=== PATIENT | female | born 1985 | race Caucasian/White ===

== ENCOUNTER 2018-04-08 18:07 | Emergency (ER) | payer OTHER, SELFPAY | END 2018-04-08 18:41 | disposition left against medical advice (07) | LOC: M ED 18:07 | DX: Z53.21 Procedure and treatment not carried out due to patient leaving prior to being seen by health care provider (principal) ==

== ENCOUNTER → 2020-09-15 | Outpatient (CLI) | payer OTHER ==
[~2020-09-15] MED LIST: ATOR1TAB21; CELE20TA PO; COLA100C5 PO; COMBAER6 INH; FERR325T3 PO; FIORCAP3 PO; HEAL1TAB6 PO; IBUP600T42 PO; IBUP80TA PO; LOVE1INJ2 SC; NICO21DI3 TD; PARO20TA3; PAXI20TA3 PO; PERCOCET PO; PROZ40CA PO; SETL1TAB; VITMTA PO
== END ==
LOC: M LABSMTC 13:34
PROVIDERS: ATTEND Anesthesiology
DX: Z01.812 Encounter for preprocedural laboratory examination (principal); Z20.822 Contact with and (suspected) exposure to COVID-19

== ENCOUNTER 2020-09-20 06:54 | Day surgery (SDC) | payer OTHER ==
[~2020-09-20] VITALS: Ht 154.9 cm; Wt 61.3 kg
[~2020-09-20 06:54] MED LIST changes: +LIDOCAINE 1% MDV 20ML VIAL SQ PRN
--- OUTSIDE RECORDS SUMMARY | 2020-09-20 06:57 | CCD | Continuity of Care Document ---
Author Author Cheryl LAW [place] Organization Unknown Address [address] [place] [address] [place] [address] Phone [phone] Care Team Providers Care Transplant Worker Name Role Phone [facility] AUTM [phone] [facility] AUTM [phone] Problems Description No Information Available Social History Type Date Description Comments Sex Unknown ETOH Use Denies alcohol use Tobacco Use Start: Unknown Patient is a current smoker, smo kes every day 1/2 ppd Smoking Status Reviewed: 08/08/20 Patient is a current smoker, smokes every day 1/2 ppd Allergies, Adverse Reactions, Alerts Active Allergies Reaction Severity Comments Date Penicillin V Swelling 08/08/2020 Medications Active Medications SIG Qnty Indications Ordering Provide r Date Cefdinir 300mg Capsules 1 by mouth twice a day x 10 days 20caps Jeremy Ansari JR., M.D. 12/2020 Albuterol Sulfate HFA 108(90Base) mcg/Act Aerosol 1-2 puff inhaled 3-4 x per day for sob/wheezing 8.500gm Jeremy Ansari JR., M.D. 08/08/2020 Paroxetine HCL 20mg Tablets q d Unknown Atorvastatin Calcium 10mg Tablets qd Unknown Immunizations Description No Information Available Vital Signs Date Vital Result Comment 08/08/2020 5:35pm BP Systolic 126 mmHg BP Diastolic 85 mmHg Heart Rate 97 /min Respiratory Rate 16 /min O2 % BldC Oximetry 98 % Body Temperature 98.2 F Weight 135.00 lb Pain Level 8 Results Description No Information Available Procedures Description No Information Available Medical Devices Description No Information Available Encounters Type Date Location Provider Dx Diagnosis Office Visit 08/08/2020 5:45p Main Office YG Castro J0 6.9 Acute upper respiratory infection, unspecified Z20.828 Contact w and exposure to ot h viral communicable diseases Assessments Date Code Description Provider 08/08/2020 J06.9 Acute upper respiratory infectio n, unspecified YG Castro 08/08/2020 Z20.828 Contact with and (mariee spected) exposure to other viral communicable diseases YG Castro Plan of Treatment No Information Available Functional Status Description No Information Available Mental Status Description No Information Available Referrals Description No Information Available
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
--- OUTSIDE RECORDS SUMMARY | 2020-09-20 06:57 | CCD ---
Author Author [facility] Organization [facility] Address Unknown Phone Unavailable Care Team Providers Care Leak Inspector Name Role Phone Brayden Askew Unavailable PROBLEMS Type Condition ICD9-CM Code [id number] Code Onset Dates Condition S tatus SNOMED Code Notes Problem Menorrhagia with irregular cycle N92.1 Active 343684981 Problem Dysmenorrhea N94.6 Active 767776312 Problem Depression, unspecified depression type F32.9 Active 06080799 Problem Smoking F17.200 Active 21999882 Problem Menorrhagia with regular cycle N92.0 Active 3 56321767 Problem Hyperlipidemia, unspecified hyperlipidemia type E7 8.5 Active 37498454 ALLERGIES Allergen (clinical drug ingredient) Drug/Non Drug Allergy do cumented on EMR Reaction Allergy Type Onset Date Status Penicillin Anaphylaxis-Neomycin Non Drug Allergy Active ENCOUNTERS from 1983 to 2020-08-18 Encounter Location Date Provider Diagnosis [facility] [address] [place] [address] 15 Ja n2020 Brayden Askew IMMUNIZATIONS No Information SOCIAL HISTORY [...] Information RESULTS No Results REASON FOR VISIT Work note MEDICAL (GENERAL) HISTORY Type Description Date Medical [...] Insured Coverage Start Date Coverage End Date [facility] [address] [facility] [address] Cheryl Beavers self
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
--- OUTSIDE RECORDS SUMMARY | 2020-09-20 06:57 | CCD | Continuity of Care Document ---
Author Author [facility]eryl [facility] [place] Organization Unknown Address [address] [place] [address] [place] [address] Phone [phone] Care Team Providers Care Head Tennis Professional Name Role Phone [facility] AUTM [phone] [facility] AUTM [phone] Problems Description No Information Available Social History [...]
--- OUTSIDE RECORDS SUMMARY | 2020-09-20 06:57 | CCD ---
Author Author [facility] Organization [facility] Address Unknown Phone Unavailable Care Team Providers Care Installation Supervisor Name Role Phone Alan Leroy Unavailable PROBLEMS Type Condition ICD9-CM Code [id number] Code Onset Dates Condition S tatus SNOMED Code Notes Problem Menorrhagia with irregular cycle N92.1 Active 405767410 Problem Dysmenorrhea N94.6 Active 525299933 Problem Depression, unspecified depression type F32.9 Active 41852608 Problem Smoking F17.200 Active 38432452 Problem Menorrhagia with regular cycle N92.0 Active 3 41216433 Problem Hyperlipidemia, unspecified hyperlipidemia type E7 8.5 Active 58757916 ALLERGIES Allergen (clinical drug ingredient) Drug/Non Drug Allergy do cumented on EMR Reaction Allergy Type Onset Date Status Penicillin Anaphylaxis-Neomycin Non Drug Allergy Active ENCOUNTERS from 1983 to 2020-08-28 Encounter Location Date Provider Diagnosis [address] [address] Aug, Alan Leroy IMMUNIZATIONS No Information SOCIAL HISTORY [...] Ora lly Three times a day Active Paroxetine HCl 20 MG 1 tablet in the morning Orally Once a day for 30 Active Lipitor 20 MG 1 tablet Orally [...] Medication Name Sig Start Date Stop Date Paroxetine HCl 20 MG 1 tablet in the morning Orally Once a day f or 30 Lipitor 20 MG 1 tablet Orally Once a day for 30 Next Appt Details Provider Name:Enriqueta Metz, 2020-10-0 5 02:30:00 PM, [address] [place] [address], [phone], Insurance Providers Payer Name Payer Address Payer Phone Insured Name Patient Relati onship to Insured Coverage Start Date Coverage End Date [facility] [address] [facility] [phone] Cheryl Beavers self
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
--- OUTSIDE RECORDS SUMMARY | 2020-09-20 06:57 | CCD ---
Author Author [facility] Organization [facility] Address Unknown Phone Unavailable Care Team Providers Care Inflatable Buildings Laminator Name Role Phone Brayden Askew Unavailable PROBLEMS Type Condition ICD9-CM Code ALI24-AC Code Onset Dates Condition S tatus SNOMED Code Notes Problem Menorrhagia with irregular cycle N92.1 Active 533262910 Problem Dysmenorrhea N94.6 Active 189556082 Problem Depression, unspecified depression type F32.9 Active 10063096 Problem Smoking F17.200 Active 97388020 Problem Menorrhagia with regular cycle N92.0 Active 3 80040688 Problem Hyperlipidemia, unspecified hyperlipidemia type E7 8.5 Active 87953261 ALLERGIES Allergen (clinical drug ingredient) Drug/Non Drug Allergy do cumented on EMR Reaction Allergy Type Onset Date Status Penicillin Anaphylaxis-Neomycin Non Drug Allergy Active ENCOUNTERS from 1983 to 2020-08-30 Encounter Location Date Provider Diagnosis [address] [address] Aug, Brayden Askew IMMUNIZATIONS No Information SOCIAL [...] Information RESULTS No Results REASON FOR VISIT off work slip MEDICAL (GENERAL) HISTORY Type Description Date Medical [...] Provider Name:Enriqueta Metz, 2020-10-0 5 02:30:00 PM, [address] [place] [address], [phone], Insurance Providers Payer Name Payer Address Payer Phone Insured Name Patient Relati onship to Insured Coverage Start Date Coverage End Date [facility] [address] [facility] [phone] Cheryl Beavers self
--- OUTSIDE RECORDS SUMMARY | 2020-09-20 06:58 | CCD ---
Author Author [facility] Organization [facility] Address Unknown Phone Unavailable Care Team Providers Care Director Of Resource Development Name Role Phone KAPLAN SR, LUIS MIGUEL GUPTA MD Unavailable Unavailable KAPLAN SR, LUIS MIGUEL GUPTA MD Unavailable Unavailable KAPLAN SR, LUIS MIGUEL GUPTA MD Unavailable Unavailable KAPLAN SR, LUIS MIGUEL GUPTA MD Unavailable Unavailable KAPLAN SR, LUIS MIGUEL GUPTA MD Unavailable Unavailable KAPLAN SR, LUIS MIGUEL GUPTA MD Unavailable Unavailable KAPLAN SR, LUIS MIGUEL GUPTA MD Unavailable Unavailable KAPLAN SR, LUIS MIGUEL GUPTA MD Unavailable Unavailable KAPLAN SR, LUIS MIGUEL GUPTA MD Unavailable Unavailable KAPLAN SR, LUIS MIGUEL GUPTA MD Unavailable Unavailable KAPLAN SR, LUIS MIGUEL GUPTA MD Unavailable Unavailable KAPLAN SR, LUIS MIGUEL GUPTA MD Unavailable Unavailable KAPLAN SR, LUIS MIGUEL GUPTA MD Unavailable Unavailable KAPLAN SR, LUIS MIGUEL GUPTA MD Unavailable Unavailable KAPLAN SR, LUIS MIGUEL GUPTA MD Unavailable Unavailable KAPLAN SR, LUIS MIGUEL GUPTA MD Unavailable Unavailable KAPLAN SR, LUIS MIGUEL GUPTA MD Unavailable Unavailable KAPLAN SR, LUIS MIGUEL GUPTA MD Unavailable Unavailable KAPLAN SR, LUIS MIGUEL GUPTA MD Unavailable Unavailable KAPLAN SR, LUIS MIGUEL GUPTA MD Unavailable Unavailable KAPLAN SR, LUIS MIGUEL GUPTA MD Unavailable Unavailable KAPLAN SR, LUIS MIGUEL GUPTA MD Unavailable Unavailable KAPLAN SR, LUIS MIGUEL GUPTA MD Unavailable Unavailable KAPLAN SR, LUIS MIGUEL GUPTA MD Unavailable Unavailable KAPLAN SR, LUIS MIGUEL GUPTA MD Unavailable Unavailable KAPLAN SR, LUIS MIGUEL GUPTA MD Unavailable Unavailable KAPLAN SR, LUIS MIGUEL GUPTA MD Unavailable Unavailable KAPLAN SR, LUIS MIGUEL GUPTA MD Unavailable Unavailable KAPLAN SR, LUIS MIGUEL GUPTA MD Unavailable Unavailable KAPLAN SR, LUIS MIGUEL GUPTA MD Unavailable Unavailable KAPLAN SR, LUIS MIGUEL GUPTA MD Unavailable Unavailable KAPLAN SR, LUIS MIGUEL GUPTA MD Unavailable Unavailable KAPLAN SR, LUIS MIGUEL GUPTA MD Unavailable Unavailable KAPLAN SR, LUIS MIGUEL GUPTA MD Unavailable Unavailable KAPLAN SR, LUIS MIGUEL GUPTA MD Unavailable Unavailable KAPLAN SR, LUIS MIGUEL GUPTA MD Unavailable Unavailable KAPLAN SR, LUIS MIGUEL GUPTA MD Unavailable Unavailable KAPLAN SR, LUIS MIGUEL GUPTA MD Unavailable Unavailable KAPLAN SR, LUIS MIGUEL GUPTA MD Unavailable Unavailable KAPLAN SR, LUIS MIGUEL GUPTA MD Unavailable Unavailable KAPLAN SR, LUIS MIGUEL GUPTA MD Unavailable Unavailable KAPLAN SR, LUIS MIGUEL GUPTA MD Unavailable Unavailable KAPLAN SR, LUIS MIGUEL GUPTA MD Unavailable Unavailable KAPLAN SR, LUIS MIGUEL GUPTA MD Unavailable Unavailable KAPLAN SR, LUIS MIGUEL GUPTA MD Unavailable Unavailable KAPLAN SR, LUIS MIGUEL GUPTA MD Unavailable Unavailable KAPLAN SR, LUIS MIGUEL GUPTA MD Unavailable Unavailable KAPLAN SR, LUIS MIGUEL GUPTA MD Unavailable Unavailable KAPLAN SR, LUIS MIGUEL GUPTA MD Unavailable Unavailable KAPLAN SR, LUIS MIGUEL GUPTA MD Unavailable Unavailable KAPLAN SR, LUIS MIGUEL GUPTA MD Unavailable Unavailable KAPLAN SR, LUIS MIGUEL GUPTA MD Unavailable Unavailable KAPLAN SR, LUIS MIGUEL GUPTA MD Unavailable Unavailable KAPLAN SR, LUIS MIGUEL GUPTA MD Unavailable Unavailable MCELHERAN, LUIS MIGUEL PA Unavailable Unavailable MCELHERAN, LUIS MIGUEL PA Unavailable Unavailable MCELHERAN, LUIS MIGUEL PA Unavailable Unavailable MCELHERAN, LUIS MIGUEL PA Unavailable Unavailable MCELHERAN, LUIS MIGUEL PA Unavailable Unavailable MCELHERAN, LUIS MIGUEL PA Unavailable Unavailable MCELHERAN, LUIS MIGUEL PA Unavailable Unavailable MCELHERAN, LUIS MIGUEL PA Unavailable Unavailable MCELHERAN, LUIS MIGUEL PA Unavailable Unavailable MCELHERAN, LUIS MIGUEL PA Unavailable Unavailable MCELHERAN, LUIS MIGUEL PA Unavailable Unavailable MCELHERAN, LUIS MIGUEL PA Unavailable Unavailable MCELHERAN, LUIS MIGUEL PA Unavailable Unavailable MCELHERAN, LUIS MIGUEL PA Unavailable Unavailable MCELHERAN, LUIS MIGUEL PA Unavailable Unavailable MCELHERAN, LUIS MIGUEL PA Unavailable Unavailable MCELHERAN, LUIS MIGUEL PA Unavailable Unavailable MCELHERAN, LUIS MIGUEL PA Unavailable Unavailable MCELHERAN, LUIS MIGUEL PA Unavailable Unavailable MCELHERAN, LUIS MIGUEL PA Unavailable Unavailable MCELHERAN, LUIS MIGUEL PA Unavailable Unavailable MCELHERAN, LUIS MIGUEL PA Unavailable Unavailable MCELHERAN, LUIS MIGUEL PA Unavailable Unavailable MCELHERAN, LUIS MIGUEL PA Unavailable Unavailable MCELHERAN, LUIS MIGUEL PA Unavailable Unavailable MCELHERAN, LUIS MIGUEL PA Unavailable Unavailable MCELHERAN, LUIS MIGUEL PA Unavailable Unavailable MCELHERAN, LUIS MIGUEL PA Unavailable Unavailable Bolla S Reji MD Unavailable Unavailable Bolla S Reji MD Unavailable Unavailable Bolla S Reji MD Unavailable Unavailable Bolla S Reji MD Unavailable Unavailable Bolla, S Reji MD Unavailable Unavailable Bolla S Reji MD Unavailable Unavailable Bolla S Reji MD Unavailable Unavailable Bolla S Reji MD Unavailable Unavailable Bolla S Reji MD Unavailable Unavailable Bolla S Reji MD Unavailable Unavailable Bolla S Reji MD Unavailable Unavailable Bolla S Reji MD Unavailable Unavailable Bolla S Reji MD Unavailable Unavailable Bolingrid S Reji MD Unavailable Unavailable Bolla S Reji MD Unavailable Unavailable Bolingrid S Reji MD Unavailable Unavailable Bolingrid S Reji MD Unavailable Unavailable Bolingrid S Reji MD Unavailable Unavailable Bolla S Reji MD Unavailable Unavailable Bolla S Reji MD Unavailable Unavailable Bolingrid S Reji MD Unavailable Unavailable Bolingrid S Reji MD Unavailable Unavailable Bolingrid S Reji MD Unavailable Unavailable Bolla S Reji MD Unavailable Unavailable Bolingrid S Reji MD Unavailable Unavailable Bolla S Reji MD Unavailable Unavailable Bolingrid S Reji MD Unavailable Unavailable Bolingrid S Reji MD Unavailable Unavailable Bolingrid S Reji MD Unavailable Unavailable Bolla S Reji MD Unavailable Unavailable Bolla S Reji MD Unavailable Unavailable Bolla S Reji MD Unavailable Unavailable Bolla S Reji MD Unavailable Unavailable Bolla S Reji MD Unavailable Unavailable Bolla S Reji MD Unavailable Unavailable Bolla S Reji MD Unavailable Unavailable Bolla S Reji MD Unavailable Unavailable Bolla S Reji MD Unavailable Unavailable Bolla, S Reji MD Unavailable Unavailable Bolla S Reji MD Unavailable Unavailable Bolla S Reji MD Unavailable Unavailable Bolla S Reji MD Unavailable Unavailable Bolla, S Reji MD Unavailable Unavailable Bolla, S Reji MALONEY Unavailable Unavailable Bolla, S Reji MALONEY Unavailable Unavailable Bolla, S Reji MALONEY Unavailable Unavailable Bolla, S Reji MALONEY Unavailable Unavailable Bolla, S Reji MALONEY Unavailable Unavailable Campanaro, Mare Anai PA Unavailable Unavailable Campanaro, Mare Anai PA Unavailable Unavailable Campanaro, Mare Anai PA Unavailable Unavailable Campanaro, Mare Anai PA Unavailable Unavailable Campanaro, Mare Anai PA Unavailable Unavailable Campanaro, Mare Anai PA Unavailable Unavailable Campanaro, Mare Anai PA Unavailable Unavailable Campanaro, Mare Anai PA Unavailable Unavailable Campanaro, Mare Anai PA Unavailable Unavailable Campanaro, Mare Naai PA Unavailable Unavailable Campanaro, Mare Anai PA Unavailable Unavailable Campanaro, Mare Anai PA Unavailable Unavailable Campanaro, Mare Anai PA Unavailable Unavailable Campanaro, Mare Anai PA Unavailable Unavailable Campanaro, Mare Anai PA Unavailable Unavailable Campanaro, Mare Anai PA Unavailable Unavailable Campanaro, Mare Anai PA Unavailable Unavailable Campanaro, Mare Anai PA Unavailable Unavailable SHAHIDA, J ANTOINETTE DO Unavailable Unavailable SHAHIDA, J ANTOINETTE DO Unavailable Unavailable SHAHIDA, J ANTOINETTE DO Unavailable Unavailable SHAHIDA, J ANTOINETTE DO Unavailable Unavailable SHAHIDA, J ANTOINETTE DO Unavailable Unavailable SHAHIDA, J ANTOINETTE DO Unavailable Unavailable SHAHIDA, J ANTOINETTE DO Unavailable Unavailable SHAHIDA, J ANTOINETTE DO Unavailable Unavailable SHAHIDA, J ANTOINETTE DO Unavailable Unavailable SHAHIDA, J ANTOINETTE DO Unavailable Unavailable SHAHIDA, J ANTOINETTE DO Unavailable Unavailable SHAHIDA, J ANTOINETTE DO Unavailable Unavailable SHAHIDA, J ANTOINETTE DO Unavailable Unavailable SHAHIDA, J ANTOINETTE DO Unavailable Unavailable SHAHIDA, J ANTOINETTE DO Unavailable Unavailable SHAHIDA, J ANTOINETTE DO Unavailable Unavailable SHAHIDA, J ANTOINETTE DO Unavailable Unavailable SHAHIDA, J ANTOINETTE DO Unavailable Unavailable SHAHIDA, J ANTOINETTE DO Unavailable Unavailable SHAHIDA, J ANTOINETTE DO Unavailable Unavailable SHAHIDA, J ANTOINETTE DO Unavailable Unavailable SHAHIDA, J ANTOINETTE DO Unavailable Unavailable SHAHIDA, J ANTOINETTE DO Unavailable Unavailable Bolla, S Reji MALONEY Unavailable Unavailable Bolla, S Reji MALONEY Unavailable Unavailable Bolla, S Reji MALONEY Unavailable Unavailable Bolla, S Reji MALONEY Unavailable Unavailable Bolla, Chaim Mendoza MD Unavailable Unavailable Bolla, Chaim Mendoza MD Unavailable Unavailable Bolla, Chaim Mendoza MD Unavailable Unavailable Bolla, Chaim Mendoza MD Unavailable Unavailable Bolla, Chaim Mendoza MD Unavailable Unavailable Bolla, Chaim Mendoza MD Unavailable Unavailable Bolla, Chaim Mendoza MD Unavailable Unavailable Bolla, Chaim Mendoza MD Unavailable Unavailable Bolla, Chaim Mendoza MD Unavailable Unavailable Bolla, Chaim Mendoza MD Unavailable Unavailable Bolla, Chaim Mendoza MD Unavailable Unavailable Bolla, Chaim Mendoza MD Unavailable Unavailable Bolla, Chaim Mendoza MD Unavailable Unavailable Bolla, Chaim Mendoza MD Unavailable Unavailable Bolla, S Reji MALONEY Unavailable Unavailable Bolla, Chaim Mendoza MD Unavailable Unavailable Bolla, Chaim Mendoza MD Unavailable Unavailable Bolla, Chaim Mendoza MD Unavailable Unavailable Bolla, Chaim Mendoza MD Unavailable Unavailable Bolla, Chaim Mendoza MD Unavailable Unavailable Bolla, Chaim Mendoza MD Unavailable Unavailable Bolla, Chaim Mendoza MD Unavailable Unavailable Bolla, Chaim Mendoza MD Unavailable Unavailable Bolla, Chaim Mendoza MD Unavailable Unavailable Bolla, Chaim Mendoza MD Unavailable Unavailable Bolla, Chaim Mendoza MD Unavailable Unavailable Bolla, Chaim Mendoza MD Unavailable Unavailable Bolla, Chaim Mendoza MD Unavailable Unavailable Bolla, Chaim Mendoza MD Unavailable Unavailable Bolla, Chaim Mendoza MD Unavailable Unavailable Bolla, Chaim Mendoza MD Unavailable Unavailable Bolla, Chaim Mendoza MD Unavailable Unavailable Bolla, Chaim Mendoza MD Unavailable Unavailable Bolla, Chaim Mendoza MD Unavailable Unavailable Bolla, Chaim Mendoza MD Unavailable Unavailable Bolla, Chaim Mendoza MD Unavailable Unavailable Bolla, Chaim Mendoza MD Unavailable Unavailable Bolla, Chaim Mendoza MD Unavailable Unavailable Bolla, Chaim Mendoza MD Unavailable Unavailable Bolla, Chaim Mendoza MD Unavailable Unavailable Bolla, Chaim Mendoza MD Unavailable Unavailable Bolla, Chaim Mendoza MD Unavailable Unavailable Bolla, Chaim Mendoza MD Unavailable Unavailable Bolla, Chaim Mendoza MD Unavailable Unavailable Re-disclosure Warning The records that you are about to access may contain information from federally-assisted alcohol or drug abuse programs. If such information is present, then the following federally mandated warning applies: This information has been disclosed to you from records protected by federal confidentiality rules (42 CFR part 2). The federal rules prohibit you from making any further disclosure of this information unless further disclosure is expressly permitted by the written consent of the person to whom it pertains or as otherwise permitted by 42 CFR part 2. A general authorization for the release of medical or other information is NOT sufficient for this purpose. The Federal rules restrict any use of the information to criminally investigate or prosecute any alcohol or drug abuse patient.The records that you are about to access may contain highly sensitive health information, the redisclosure of which is protected by Article 27-F of the [facility] Public Health law. If you continue you may have access to information: Regarding HIV / AIDS; Provided by facilities licensed or operated by the [facility] Office of Mental Health; or Provided by the [facility] Office for People With Developmental Disabilities. If such information is present, then the following [facility] mandated warning applies: This information has been disclosed to you from confidential records which are protected by state law. State law prohibits you from making any further disclosure of this information without the specific written consent of the person to whom it pertains, or as otherwise permitted by law. Any unauthorized further disclosure in violation of state law may result in a fine or shelter sentence or both. A general authorization for the release of medical or other information is NOT sufficient authorization for further disc losure. Allergies and Adverse Reactions Type Description Substance Reaction Status Data Source(s ) Penicillin Penicillin Penicillin Anaphylaxis-Neomycin Active eCW 1 ([facility]) Penicillin (For Allergies Use Only) Penicillin (For Allergie s Use Only) Penicillin (For Allergies Use Only) swelling Active eCW1 ([facility]) Allergy to substance Neomycin Other ATHE NA ([facility]) Allergy to substance Neomycin Other ATHE NA ([facility]) Family History Family Member Name Family Member Gender Family Member Status Date o f Status Description Data Source(s) Unknown Male Problem MEDENT ([facility]) Unknown Female Problem MEDENT ([facility] ) Encounters Encounter Providers Location Date Indications Data Source(s ) Outpatient [facility] 08/30/2020 12:00:00 AM EST eCW1 ([facility]) Outpatient [facility] 08/28/2020 12:00:00 AM EST eCW1 ([facility]) Outpatient [facility] 08/18/2020 12:00:00 AM EST eCW1 ([facility]) Outpatient [facility] 08/14/2020 12:00:00 AM EST eCW1 ([facility]) Outpatient Attender: ANTOINETTE Haywood: [facility] 02:30:00 PM EST - 08/10/2020 02:30:00 PM EST [facility] Outpatient [facility] 08/10/2020 12:00:00 AM EST eCW1 ([facility]) Outpatient Attender: Anai Brink Prim yoan 08/08/2020 04:45:00 PM EST MEDENT ([facility]) Outpatient [facility] 06/26/2020 12:00:00 AM EST eCW1 ([facility]) Outpatient Attender: LUIS MIGUEL RONQUILLO Physical Therapy 06/08/2020 01:30:00 PM EST MEDENT ([facility]) [facility] ENTER 06/08/2020 12:00:00 AM EST eCW1 ([facility]) Outpatient Attender: LUIS MIGUEL RONQUILLO Physical Therapy 05/18/2020 01:00:00 PM EDT MEDENT ([facility]) Outpatient 03/20/2020 01:15:00 PM EDT [facility] Outpatient Referrer: Reji Pedersen MD 01/12/2020 06:18:0 0 AM EDT [facility] Outpatient Referrer: Reji Pedersen MD 01/07/2020 01:46:0 0 PM EDT [facility] Outpatient Referrer: Reji Pedersen MD 01/07/2020 01:04:0 0 PM EDT [facility] Outpatient Referrer: Reji Pedersen MD 01/06/2020 07:04:0 0 AM EDT [facility] Outpatient Referrer: Reji Pedersen MD 01/06/2020 07:03:0 0 AM EDT [facility] Outpatient Referrer: Reji Pedersen MD 01/06/2020 07:01:0 0 AM EDT [facility] Reji Pedersen MD: [id number], [place] [address], Ph. Attender: Reji SANDERS - [facility] - Main Office 01/04/2020 12:00:00 AM EDT GEOVANNI ([facility]) Outpatient Referrer: Reji Pedersen MD 12/31/2019 09:10:0 0 AM EDT [facility] Outpatient Attender: ANTOINETTE Vogterrer: CANDY KAPLAN SR [facility] 12/29/2019 09:02:00 AM EDT - 12/29/2019 09:02:00 AM EDT [facility] Outpatient [facility] 12/29/2019 12:00:00 AM EDT eCW1 ([facility]) [facility] 12/29/2019 12:00:00 AM EDT eCW1 ([facility]) Outpatient Attender: CANDY KAPLAN SR 12/20/2019 11:43:00 AM EDT [facility] ENTER 12/16/2019 12:00:00 AM EDT eCW1 ([facility]) Outpatient Attender: CANDY AKPLAN SRReferrer: REBA KAPLAN SR EM[facility]Y [facility] 12/15/2019 01:52:00 PM EDT - 12/15/2019 01:52:00 PM EDT [facility] Outpatient Attender: CANDY KAPLAN SR 12/14/2019 11:23:00 AM EDT [facility] Reji Pedersen MD: [id number], [address], [place] [address], Ph. Attender: Reji SANDERS - [facility] - Main Office 12/14/2019 12:00:00 AM EDT GEOVANNI ([facility]) [facility] 12/14/2019 12:00:00 AM EDT eCW1 ([facility]) Reji Pedersen MD: [id number], [place] [address], Ph. Attender: Reji Pedersen MD [place] - [facility] - Main Office 12/14/2019 12:00:00 AM EDT GEOVANNI ([facility]) Outpatient Attender: CANDY KAPLAN SR 12/07/2019 02:55:00 PM EDT [facility] ENTER 12/07/2019 12:00:00 AM EDT eCW1 ([facility]) [facility] 11/26/2019 12:00:00 AM EDT eCW1 ([facility]) [facility] 10/25/2019 12:00:00 AM EDT eCW1 ([facility]) [address] [id number] 10/21/2019 12:00:00 AM EDT eCW1 ([facility]) Medications Medication Brand Name Start Date Product Form Dose Route Admi nistrative Instructions Pharmacy Instructions Status Indications Reaction Description Data Source(s) atorvastatin 20 MG Oral Tablet ATORVASTATIN CALCIUM 08/28/2020 1 2:00:00 AM EST tablet 30 TAKE ONE TABLET BY MOUTH EVERY D AY TAKE ONE TABLET BY MOUTH EVERY DAY SOLD: 08/30/2020 [facility] 20 mg 08/28/2020 12:00:00 AM EST tablet 30 TAKE ONE TABLET BY MOUTH EVERY MORNING TAKE ONE TABLET BY MOUTH EVERY MORNING SOLD: 08/30/2020 [facility] 300 mg 08/08/2020 12:00:00 AM EST capsule 20 TAKE ONE CAPSULE BY MOUTH TWICE A DAY FOR 10 DAYS TAKE ONE CAPSULE BY MOUTH TWICE A DAY FOR 10 DAYS SOLD : 08/08/2020 [facility] 60 ACTUAT Albuterol 0.09 MG/ACTUAT Metered Dose Inhaler Albu terol Sulfate HFA 08/08/2020 12:00:00 AM EST RESPIRATORY active MEDENT ([facility]) cefdinir 300 MG Oral Capsule Cefdinir 08/08/2020 12:00:00 AM EST ORAL active MEDENT ([facility]) 90 mcg/actuation 08/08/2020 12:00:00 AM EST HFA aerosol inha ler 8 INHALE 1-2 PUFFS BY MOUTH 3-4 TIMES A DAY FOR WHEEZE SHORTNESS OF BREATH INHALE 1-2 PUFFS BY MOUTH 3-4 TIMES A DAY FOR WHEEZE SHORTNESS OF BREATH SOLD: 08/08/2020 [facility] Setlakin 91 Day Pack 0.15 mg-30 mcg (91) LEVONORGESTREL/ETHI NYL ESTRADIOL 07/04/2020 12:00:00 AM EST tablets,dose pack,3 month 91 TAKE 1 TABLET BY MOUTH ONCE A DAY TAKE 1 TABLET BY MOUTH ONCE A DAY SOLD: 07/18/2020 [facility] atorvastatin 20 MG Oral Tablet ATORVASTATIN CALCIUM 07/01/2020 1 2:00:00 AM EST tablet 30 TAKE 1 TABLET BY MOUTH ONCE A DAY TAKE 1 TABLET BY MOUTH ONCE A DAY SOLD: 07/01/2020 [facility] atorvastatin 20 MG Oral Tablet ATORVASTATIN CALCIUM 07/01/2020 1 2:00:00 AM EST tablet 30 TAKE 1 TABLET BY MOUTH ONCE A DAY TAKE 1 TABLET BY MOUTH ONCE A DAY SOLD: 08/01/2020 [facility] 500 mg 06/27/2020 12:00:00 AM EST tablet 60 TAKE ONE TABLET BY MOUTH EVERY 12 HOURS WITH FOOD OR MILK NEEDED TAKE ONE TABLET BY MOUTH EVERY 12 HOURS WITH FOOD OR MILK NEEDED SOLD: 07/01/2020 [facility] Ibuprofen 800 MG Oral Tablet Ibuprofen 06/08/2020 12:00:00 AM EST ORAL active MEDENT ([facility]) 800 mg 06/08/2020 12:00:00 AM EST tablet 90 TAKE ONE TABLET BY MOUTH THREE TIMES A DAY TAKE ONE TABLET BY MOUTH THREE TIMES A DAY SOLD: 07/18/2020 [facility] 800 mg 05/13/2020 12:00:00 AM EDT tablet 30 TAKE ONE TABLET BY MOUTH THREE TIMES A DAY FOR 10 DAYS TAKE ONE TABLET BY MOUTH THREE TIMES A DAY FOR 10 DAYS SOLD: 05/13/2020 [facility] Cyclobenzaprine hydrochloride 10 MG Oral Tablet CYCLOBENZAPR INE HCL 05/13/2020 12:00:00 AM EDT tablet 10 TAKE ONE TABLET BY MOUTH AT BEDTIME FOR 10 DAYS TAKE ONE TABLET BY MOUTH AT BEDTIME FOR 10 DAYS SOLD: 05/13/2020 [facility] 20 mg 05/13/2020 12:00:00 AM EDT tablet 10 TAKE TWO TABLETS BY MOUTH EVERY MORNING FOR 5 DAYS, START 05/14/2020 TAKE TWO TABLETS BY MOUTH EVERY MORNING FOR 5 DAYS, START 05/14/2020 SOLD: 05/13/2020 [facility] 20 mg 04/19/2020 12:00:00 AM EDT tablet 30 TAKE ONE TABLET BY MOUTH EVERY MORNING TAKE ONE TABLET BY MOUTH EVERY MORNING SOLD: 07/01/2020 [facility] 20 mg 04/19/2020 12:00:00 AM EDT tablet 30 TAKE ONE TABLET BY MOUTH EVERY MORNING TAKE ONE TABLET BY MOUTH EVERY MORNING SOLD: 08/01/2020 [facility] 20 mg 04/19/2020 12:00:00 AM EDT tablet 30 TAKE ONE TABLET BY MOUTH EVERY MORNING TAKE ONE TABLET BY MOUTH EVERY MORNING SOLD: 04/22/2020 [facility] 20 mg 04/19/2020 12:00:00 AM EDT tablet 30 TAKE ONE TABLET BY MOUTH EVERY MORNING TAKE ONE TABLET BY MOUTH EVERY MORNING SOLD: 05/31/2020 [facility] 21 mg/24 hr 04/17/2020 12:00:00 AM EDT patch 24 hour 28 APPLY 1 PATCH TO THE SKIN ONCE DAILY APPLY 1 PATCH TO THE SKIN ONCE DAILY SOLD: 05/31/2020 [facility] 21 mg/24 hr 04/17/2020 12:00:00 AM EDT patch 24 hour 28 APPLY 1 PATCH TO THE SKIN ONCE DAILY APPLY 1 PATCH TO THE SKIN ONCE DAILY SOLD: 04/22/2020 [facility] 50-325 mg 03/22/2020 12:00:00 AM EDT tablet 60 TAKE 1-2 TABLETS BY MOUTH NEEDED MIGRAINES MAX DAILY DOSE = 2 TABLETS TAKE 1-2 TABLETS BY MOUTH NEEDED MIGRAINES MAX DAILY DOSE = 2 TABLETS SOLD: 04/22/2020 [facility] 50-325 mg 03/22/2020 12:00:00 AM EDT tablet 60 TAKE 1-2 TABLETS BY MOUTH NEEDED MIGRAINES MAX DAILY DOSE = 2 TABLETS TAKE 1-2 TABLETS BY MOUTH NEEDED MIGRAINES MAX DAILY DOSE = 2 TABLETS SOLD: 03/23/2020 [facility] 50-325 mg 03/22/2020 12:00:00 AM EDT tablet 60 TAKE 1-2 TABLETS BY MOUTH NEEDED MIGRAINES MAX DAILY DOSE = 2 TABLETS TAKE 1-2 TABLETS BY MOUTH NEEDED MIGRAINES MAX DAILY DOSE = 2 TABLETS SOLD: 05/31/2020 [facility] 500 mg 03/15/2020 12:00:00 AM EDT tablet 60 TAKE ONE TABLET BY MOUTH EVERY 12 HOURS NEEDED WITH FOOD OR MILK TAKE ONE TABLET BY MOUTH EVERY 12 HOURS NEEDED WITH FOOD OR MILK SOLD: 04/22/2020 [facility] 500 mg 03/15/2020 12:00:00 AM EDT tablet 60 TAKE ONE TABLET BY MOUTH EVERY 12 HOURS NEEDED WITH FOOD OR MILK TAKE ONE TABLET BY MOUTH EVERY 12 HOURS NEEDED WITH FOOD OR MILK SOLD: 03/23/2020 [facility] 500 mg 03/15/2020 12:00:00 AM EDT tablet 60 TAKE ONE TABLET BY MOUTH EVERY 12 HOURS NEEDED WITH FOOD OR MILK TAKE ONE TABLET BY MOUTH EVERY 12 HOURS NEEDED WITH FOOD OR MILK SOLD: 05/31/2020 [facility] 21 mg/24 hr 02/21/2020 12:00:00 AM EDT patch 24 hour 28 APPLY 1 PATCH TO THE SKIN ONCE DAILY APPLY 1 PATCH TO THE SKIN ONCE DAILY SOLD: 02/23/2020 [facility] 21 mg/24 hr 02/21/2020 12:00:00 AM EDT patch 24 hour 28 APPLY 1 PATCH TO THE SKIN ONCE DAILY APPLY 1 PATCH TO THE SKIN ONCE DAILY SOLD: 03/23/2020 [facility] atorvastatin 20 MG Oral Tablet ATORVASTATIN CALCIUM 12/30/2019 1 2:00:00 AM EDT tablet 30 TAKE ONE TABLET BY MOUTH EVERY D AY TAKE ONE TABLET BY MOUTH EVERY DAY SOLD: 12/31/2019 [facility] Setlakin 91 Day Pack 0.15 mg-30 mcg (91) LEVONORGESTREL/ETHI NYL ESTRADIOL 12/30/2019 12:00:00 AM EDT tablets,dose pack,3 month 91 TAKE ONE TABLET BY MOUTH EVERY DAY TAKE ONE TABLET BY MOUTH EVERY DAY SOLD: 04/03/2020 [facility] atorvastatin 20 MG Oral Tablet ATORVASTATIN CALCIUM 12/30/2019 1 2:00:00 AM EDT tablet 30 TAKE ONE TABLET BY MOUTH EVERY D AY TAKE ONE TABLET BY MOUTH EVERY DAY SOLD: 03/01/2020 [facility] atorvastatin 20 MG Oral Tablet ATORVASTATIN CALCIUM 12/30/2019 1 2:00:00 AM EDT tablet 30 TAKE ONE TABLET BY MOUTH EVERY D AY TAKE ONE TABLET BY MOUTH EVERY DAY SOLD: 04/03/2020 [facility] atorvastatin 20 MG Oral Tablet ATORVASTATIN CALCIUM 12/30/2019 1 2:00:00 AM EDT tablet 30 TAKE ONE TABLET BY MOUTH EVERY D AY TAKE ONE TABLET BY MOUTH EVERY DAY SOLD: 05/04/2020 [facility] Setlakin 91 Day Pack 0.15 mg-30 mcg (91) LEVONORGESTREL/ETHI NYL ESTRADIOL 12/30/2019 12:00:00 AM EDT tablets,dose pack,3 month 91 TAKE ONE TABLET BY MOUTH EVERY DAY TAKE ONE TABLET BY MOUTH EVERY DAY SOLD: 12/31/2019 [facility] atorvastatin 20 MG Oral Tablet ATORVASTATIN CALCIUM 12/30/2019 1 2:00:00 AM EDT tablet 30 TAKE ONE TABLET BY MOUTH EVERY D AY TAKE ONE TABLET BY MOUTH EVERY DAY SOLD: 06/02/2020 [facility] atorvastatin 20 MG Oral Tablet ATORVASTATIN CALCIUM 12/30/2019 1 2:00:00 AM EDT tablet 30 TAKE ONE TABLET BY MOUTH EVERY D AY TAKE ONE TABLET BY MOUTH EVERY DAY SOLD: 02/01/2020 [facility] Levonorgest-Eth Estrad 91-Day 0.15-0.03 MG Levonorgest -Eth Estrad 91-Day 0.15- 0.03 MG 12/29/2019 12:00:00 AM EDT 1.0 {tablet} acti ve Levonorgest- Eth Estrad 91-Day 0.15-0.03 MG eCW1 ([facility]) Levonorgest-Eth Estrad 91-Day 0.15-0.03 MG Levonorgest -Eth Estrad 91-Day 0.15- 0.03 MG 12/29/2019 12:00:00 AM EDT 1.0 {tablet} acti ve Levonorgest- Eth Estrad 91-Day 0.15-0.03 MG eCW1 ([facility]) 50-325 mg 12/22/2019 12:00:00 AM EDT tablet 60 TAKE 1-2 TABLETS BY MOUTH NEEDED MIGRAINES MAX DAILY DOSE = 2 TABLETS TAKE 1-2 TABLETS BY MOUTH NEEDED MIGRAINES MAX DAILY DOSE = 2 TABLETS SOLD: 12/24/2019 [facility] 50-325 mg 12/22/2019 12:00:00 AM EDT tablet 60 TAKE 1-2 TABLETS BY MOUTH NEEDED MIGRAINES MAX DAILY DOSE = 2 TABLETS TAKE 1-2 TABLETS BY MOUTH NEEDED MIGRAINES MAX DAILY DOSE = 2 TABLETS SOLD: 02/23/2020 [facility] 50-325 mg 12/22/2019 12:00:00 AM EDT tablet 60 TAKE 1-2 TABLETS BY MOUTH NEEDED MIGRAINES MAX DAILY DOSE = 2 TABLETS TAKE 1-2 TABLETS BY MOUTH NEEDED MIGRAINES MAX DAILY DOSE = 2 TABLETS SOLD: 01/26/2020 [facility] 20 mg 12/20/2019 12:00:00 AM EDT tablet 30 TAKE 1 TABLET BY MOUTH ONCE A DAY IN THE MORNING TAKE 1 TABLET BY MOUTH ONCE A DAY IN THE MORNING SOLD: 01/26/2020 [facility] 20 mg 12/20/2019 12:00:00 AM EDT tablet 30 TAKE 1 TABLET BY MOUTH ONCE A DAY IN THE MORNING TAKE 1 TABLET BY MOUTH ONCE A DAY IN THE MORNING SOLD: 12/24/2019 [facility] 20 mg 12/20/2019 12:00:00 AM EDT tablet 30 TAKE 1 TABLET BY MOUTH ONCE A DAY IN THE MORNING TAKE 1 TABLET BY MOUTH ONCE A DAY IN THE MORNING SOLD: 02/23/2020 [facility] 20 mg 12/20/2019 12:00:00 AM EDT tablet 30 TAKE 1 TABLET BY MOUTH ONCE A DAY IN THE MORNING TAKE 1 TABLET BY MOUTH ONCE A DAY IN THE MORNING SOLD: 03/23/2020 [facility] atorvastatin 20 MG Oral Tablet [Lipitor] Lipitor 20 MG Lipit or 20 MG 12/17/2019 12:00:00 AM EDT active 1 tablet eCW1 ([facility]) atorvastatin 20 MG Oral Tablet [Lipitor] Lipitor 20 MG Lipit or 20 MG 12/17/2019 12:00:00 AM EDT 1.0 {tablet} active Li pitor 20 MG eCW1 ([facility]) atorvastatin 20 MG Oral Tablet [Lipitor] Lipitor 20 MG Lipit or 20 MG 12/17/2019 12:00:00 AM EDT active 1 tablet eCW1 ([facility]) atorvastatin 20 MG Oral Tablet [Lipitor] Lipitor 20 MG Lipit or 20 MG 12/17/2019 12:00:00 AM EDT 1.0 {tablet} active Li pitor 20 MG eCW1 ([facility]) 500 mg 12/07/2019 12:00:00 AM EDT tablet 60 TAKE 1 TABLET BY MOUTH EVERY 12 HOURS NEEDED WITH FOOD OR MILK TAKE 1 TABLET BY MOUTH EVERY 12 HOURS NEEDED WITH FOOD OR MILK SOLD: 02/17/2020 [facility] Naproxen 500 MG Oral Tablet Naproxen 500 MG 12/07/2019 12:00:00 AM EDT active 1 tablet with food or milk a s needed eCW1 ([facility]) 500 mg 12/07/2019 12:00:00 AM EDT tablet 60 TAKE 1 TABLET BY MOUTH EVERY 12 HOURS NEEDED WITH FOOD OR MILK TAKE 1 TABLET BY MOUTH EVERY 12 HOURS NEEDED WITH FOOD OR MILK SOLD: 01/07/2020 [facility] 24 HR Nicotine 0.875 MG/HR Transdermal P atch [Nicoderm C-Q] Nicoderm CQ 21 MG/24HR Nicoderm CQ 21 MG/24HR 12/07/2019 12:00:00 AM EDT 1.0 {patch_to_skin} active Nicoderm CQ 21 MG/24 HR eCW1 ([facility]) physical therapy eval and tx - UNK 12/07/2019 12:00:00 AM EDT active - eCW1 ([facility]) Naproxen 500 MG Oral Tablet Naproxen 500 MG 12/07/2019 12:00:00 AM EDT active Naproxen 500 MG eCW1 ([facility]) physical therapy eval and tx - UNK 12/07/2019 12:00:00 AM EDT active physical therapy eval and tx - eCW1 ([facility]) 24 HR Nicotine 0.875 MG/HR Transdermal P atch [Nicoderm C-Q] Nicoderm CQ 21 MG/24HR Nicoderm CQ 21 MG/24HR 12/07/2019 12:00:00 AM EDT active 1 patch to skin eCW1 ([facility]) 21 mg/24 hr 12/07/2019 12:00:00 AM EDT patch 24 hour 28 APPLY 1 PATCH TO THE SKIN ONCE DAILY APPLY 1 PATCH TO THE SKIN ONCE DAILY SOLD: 12/24/2019 [facility] physical therapy eval and tx - UNK 12/07/2019 12:00:00 AM EDT active physical therapy eval and tx - eCW1 ([facility]) 500 mg 12/07/2019 12:00:00 AM EDT tablet 60 TAKE 1 TABLET BY MOUTH EVERY 12 HOURS NEEDED WITH FOOD OR MILK TAKE 1 TABLET BY MOUTH EVERY 12 HOURS NEEDED WITH FOOD OR MILK SOLD: 12/10/2019 [facility] 21 mg/24 hr 12/07/2019 12:00:00 AM EDT patch 24 hour 28 APPLY 1 PATCH TO THE SKIN ONCE DAILY APPLY 1 PATCH TO THE SKIN ONCE DAILY SOLD: 01/26/2020 [facility] 20 mg 11/26/2019 12:00:00 AM EDT tablet 30 TAKE ONE TABLET BY MOUTH EVERY DAY TAKE ONE TABLET BY MOUTH EVERY DAY SOLD: 11/26/2019 [facility] 20 mg 10/26/2019 12:00:00 AM EDT tablet 30 TAKE ONE TABLET BY MOUTH EVERY MORNING TAKE ONE TABLET BY MOUTH EVERY MORNING SOLD: 10/28/2019 [facility] Paroxetine HCl 20 MG Paroxetine HCl 20 MG 10/25/2019 12:00:00 AM EDT active 1 tablet in the morning eCW1 ([facility]) Paroxetine HCl 20 MG Paroxetine HCl 20 MG 10/25/2019 12:00:00 AM ED T 1.0 {tablet_in_the_morning} active Paroxeti ne HCl 20 MG eCW1 ([facility]) 50-325 mg 09/16/2019 12:00:00 AM EST tablet 60 TAKE 1-2 TABLETS BY MOUTH NEEDED MIGRAINES MAX DAILY DOSE = 2 TABLETS TAKE 1-2 TABLETS BY MOUTH NEEDED MIGRAINES MAX DAILY DOSE = 2 TABLETS SOLD: 11/26/2019 [facility] 50-325 mg 09/16/2019 12:00:00 AM EST tablet 60 TAKE 1-2 TABLETS BY MOUTH NEEDED MIGRAINES MAX DAILY DOSE = 2 TABLETS TAKE 1-2 TABLETS BY MOUTH NEEDED MIGRAINES MAX DAILY DOSE = 2 TABLETS SOLD: 09/23/2019 [facility] 50-325 mg 09/16/2019 12:00:00 AM EST tablet 60 TAKE 1-2 TABLETS BY MOUTH NEEDED MIGRAINES MAX DAILY DOSE = 2 TABLETS TAKE 1-2 TABLETS BY MOUTH NEEDED MIGRAINES MAX DAILY DOSE = 2 TABLETS SOLD: 10/22/2019 [facility] 10 mg 07/14/2019 12:00:00 AM EST tablet 60 TAKE 1 TABLET BY MOUTH TWICE A DAY NEEDED FOR BACK PAIN TAKE 1 TABLET BY MOUTH TWICE A DAY NE EDED FOR BACK PAIN SOLD: 08/19/2019 [facility] 10 mg 07/14/2019 12:00:00 AM EST tablet 60 TAKE 1 TABLET BY MOUTH TWICE A DAY NEEDED FOR BACK PAIN TAKE 1 TABLET BY MOUTH TWICE A DAY NE EDED FOR BACK PAIN SOLD: 09/23/2019 [facility] 4 mg 07/13/2019 12:00:00 AM EST tablet 60 TAKE ONE TABLET BY MOUTH THREE TIMES A DAY MAXIMUM DAILY DOSE = 3 TAKE ONE TABLET BY MOUTH THREE TIMES A D AY MAXIMUM DAILY DOSE = 3 SOLD: 08/02/2019 [facility] 50-325 mg 06/16/2019 12:00:00 AM EST tablet 60 TAKE 1-2 TABLETS BY MOUTH NEEDED MIGRAINES MAX DAILY DOSE = 2 TABLETS TAKE 1-2 TABLETS BY MOUTH NEEDED MIGRAINES MAX DAILY DOSE = 2 TABLETS SOLD: 08/19/2019 [facility] 20 mg 04/24/2019 12:00:00 AM EDT tablet 30 TAKE ONE TABLET BY MOUTH EVERY DAY TAKE ONE TABLET BY MOUTH EVERY DAY SOLD: 09/23/2019 [facility] 20 mg 04/24/2019 12:00:00 AM EDT tablet 30 TAKE ONE TABLET BY MOUTH EVERY DAY TAKE ONE TABLET BY MOUTH EVERY DAY SOLD: 08/19/2019 [facility] Nicotine 4 MG Chewing Gum nicotine (polacrilex) 4 mg g um nicotine (polacrilex) 4 mg gum completed nicotine 4 MG C hewing Gum GEOVANNI ([facility]) cefdinir 300 MG Oral Capsule cefdinir 300 mg capsule cefdinir 30 0 mg capsule completed cefdinir 300 M G Oral Capsule GEOVANNI ([facility]) Acetaminophen 325 MG / butalbital 50 MG Oral Tablet butalbital 50 mg- acetaminophen 325 mg tablet butalbital 50 mg-acetaminophen 325 mg tablet completed acetaminophen 325 MG / butalbital 50 MG Oral Tablet GEOVANNI ([facility]) Clindamycin 300 MG Oral Capsule clindamycin HCl 300 mg capsule clindamycin HCl 300 mg capsule completed clindam ycin 300 MG Oral Capsule GEOVANNI ([facility]) Triamcinolone Acetonide 0.005 MG/MG Topi gricelda Ointment triamcinolone acetonide 0.5 % topical ointment triamcinolone acetonide 0.5 % topical ointment completed triamcinolone acetonide 0.005 MG /MG Topical Ointment GEOVANNI ([facility]) Clindamycin 300 MG Oral Capsule clindamycin HCl 300 mg capsule clindamycin HCl 300 mg capsule completed clindam ycin 300 MG Oral Capsule GEOVANNI ([facility]) tizanidine 4 MG Oral Tablet tizanidine 4 mg tablet tizanidine 4 mg ta blet completed tizanidine 4 MG Oral Tablet GEOVANNI ([facility]) Triamcinolone Acetonide 0.005 MG/MG Topi gricelda Ointment triamcinolone acetonide 0.5 % topical ointment triamcinolone acetonide 0.5 % topical ointment completed triamcinolone acetonide 0.005 MG /MG Topical Ointment GEOVANNI ([facility]) levocetirizine dihydrochloride 5 MG Oral Tablet levoce tirizine 5 mg tablet levocetirizine 5 mg tablet completed levocetirizine dihydrochloride 5 MG Oral Tablet GEOVANNI ([facility]) tizanidine 4 MG Oral Tablet tizanidine 4 mg tablet tizanidine 4 mg ta blet completed tizanidine 4 MG Oral Tablet GEOVANNI ([facility]) Nicotine 4 MG Chewing Gum nicotine (polacrilex) 4 mg g um nicotine (polacrilex) 4 mg gum completed nicotine 4 MG C hewing Gum GEOVANNI ([facility]) Prednisone 20 MG Oral Tablet prednisone 20 mg tablet prednisone 20 mg tablet completed prednisone 20 MG Oral Tablet GEOVANNI ([facility]) levocetirizine dihydrochloride 5 MG Oral Tablet levoce tirizine 5 mg tablet levocetirizine 5 mg tablet completed levocetirizine dihydrochloride 5 MG Oral Tablet GEOVANNI ([facility]) Prednisone 20 MG Oral Tablet prednisone 20 mg tablet prednisone 20 mg tablet completed prednisone 20 MG Oral Tablet GEOVANNI ([facility]) cefdinir 300 MG Oral Capsule cefdinir 300 mg capsule cefdinir 30 0 mg capsule completed cefdinir 300 M G Oral Capsule GEOVANNI ([facility]) Insurance Providers Payer name Policy type / Coverage type Policy ID Covered democrat ID Covered democrat's relationship to dobson Policy Dobson Plan Information [facility] [id number] SP [id number] [facility] [id number] SP [id number] [facility] [id number] SP [id number] [facility] [id number] S [id number] [facility] [id number] S [id number] MVP HEALTH CARE O [id number] S [id number] [facility] HEALTHCARE [id number] S [id number] MVP MDCD HM [id number] 18 [id number] ANSI-Not a Secondary Insurance [id number] MVP MDCD Health Maintenance Organization (HMO) [id number] Self [id number] MVP MDCD [id number] 18 [id number] MVP Medicaid Commercial [id number] Self [id number] MVP Medicaid Commercial [id number] Self [id number] O UNAVAILABLE UNAVAILA BLE ANSI-Not a Secondary Insurance [id number] P Medicaid Commercial [id number] Self [id number] [facility] [id number] SP [id number] SELF PAY ONLY [id number] SP [id number] [facility] MCDO [id number] SP [id number] MVP I [id number] Self [id number] MVP MDCD Health Maintenance Organization (HMO) [id number] Self [id number] P MEDICAID HMO -O/P [id number] 18 [id number] MVP Medicaid Commercial [id number] Self [id number] MVP MDCD Health Maintenance Organization (HMO) [id number] Self [id number] MVP MDCD Health Maintenance Organization (HMO) [id number] Self [id number] P HEALTH CARE O [id number] S [id number] MVP MDCD Health Maintenance Organization (HMO) [id number] Self [id number] [facility] [id number] 18 [id number] MVP MEDICAID HMO -O/P [id number] 18 [id number] MEDICAID -O/P [id number] 18 [id number] MVP MEDICAID HMO -O/P [id number] 18 [id number] MVP MDCD HM UNAVAILABLE 18 UNAVAILA BLE MVP Health Ins Co Commercial [id number] Self [id number] [facility] Community Plan Commercial Self [facility](MCAID) O [id number] S [id number] UNHC AMERICHOICE XIX -HMO [id number] 18 [id number] UNHC COMMUNITY PLAN [facility] [id number] SP [id number] UNHC COMMUNITY PLAN [facility] [id number] SP [id number] [facility] PLAN [id number] 18 [id number] SELF PAY UNAVAILABLE UNAVAILA BLE MEDICAID [id number] SP [id number] [facility] [id number] SP [id number] UN COMMUNITY PLAN [facility] [id number] SP [id number] Problems, Conditions, and Diagnoses Code Display Name Description Problem Type Effective Dates Data Source(s) N94.6 [id number] Dysmenorrhea Problem 12/29/2019 12:00:00 AM EDT eCW1 ([facility]) N92.1 [id number] Menorrhagia with irregular cycle Problem 12/29/2019 12:00:00 AM EDT eCW1 ([facility]) N94.6 [id number] Dysmenorrhea Problem 12/29/2019 12:00:00 AM EDT eCW1 ([facility]) N92.1 [id number] Menorrhagia with irregular cycle Problem 12/29/2019 12:00:00 AM EDT eCW1 ([facility]) E78.5 [id number] Hyperlipidemia, unspecified hyperlipidemi a type Problem 12/17/2019 12:00:00 AM EDT eCW1 ([facility]) E78.5 [id number] Hyperlipidemia, unspecified hyperlipidemi a type Problem 12/17/2019 12:00:00 AM EDT eCW1 ([facility]) N92.0 [id number] Menorrhagia with regular cycle Problem 12/07/2019 12:00:00 AM EDT eCW1 ([facility]) F17.200 [id number] Smoking Problem 12/07/2019 12:00:00 AM ED T eCW1 ([facility]) F32.9 [id number] Depression, unspecified depression type P roblem 12/07/2019 12:00:00 AM EDT [facility] ([facility]) N92.0 [id number] Menorrhagia with regular cycle Problem 12/07/2019 12:00:00 AM EDT [facility] ([facility]) F17.200 [id number] Smoking Problem 12/07/2019 12:00:00 AM ED T eCW1 ([facility]) F32.9 [id number] Depression, unspecified depression type P roblem 12/07/2019 12:00:00 AM EDT [facility] ([facility]) D25.9 Leiomyoma of uterus, unspecified LEIOMYOMA OF UT ERUS, UNSPECIFIED Diagnosis 08/10/2020 02:30:00 PM [facility] F17.210 Nicotine dependence, cigarettes, uncompl icated NICOTINE DEPENDENCE, CIGARETTES, UNCOMPLICATED Diagnosis 12/29/2019 09:02:00 AM [facility] N94.6 Dysmenorrhea, unspecified DYSMENORRHEA, UNSPECIFIED Di agnosis 12/29/2019 09:02:00 AM [facility] N92.1 Excessive and frequent menstruation with irregular cycle EXCESSIVE AND FREQUENT MENSTRUATION WITH IRREGULAR CYCLE Diagnosis 12/29/2019 09:02: 00 AM [facility] M41.84 Other forms of scoliosis, thoracic regio n OTHER FORMS OF SCOLIOSIS, THORACIC REGION Diagnosis 12/15/2019 [facility]52[facility].36 Other intervertebral disc degeneration, lumbar region OTHER INTERVERTEBRAL DISC DEGENERATION, LUMBAR REG Diagnosis 0 01:52:00 PM [facility] N85.4 Malposition of uterus MALPOSITION OF UTERUS Diagnosis 12/15/2019 01:52:00 PM [facility] M54.5 Low back pain LOW BACK PAIN Diagnosis 12/15/2019 01:52:00 PM [facility] Z13.29 Encounter for screening for other suspec franck endocrine disorder ENCOUNTER FOR SCREENING FOR OTH SUSPECTE Diagnosis 12/15/2019 01:52:00 PM [facility] Z13.220 Encounter for screening for lipoid disor ders ENCOUNTER FOR SCREENING FOR LIPOID DISOR Diagnosis 12/15/2019 01:52:00 PM EDT [facility] N92.0 Excessive and frequent menstruation with regular cycle EXCESSIVE AND FREQUENT MENSTRUATION WITH REGULAR CYCLE Diagnosis 12/15/2019 01:52:00 PM [facility] Z76.89 Persons encountering health services in other specified circumstances PERSONS ENCOUNTERING HEALTH SERVICES IN OTH CIRCUM Diagnosis 12/2019 02:55:00 PM [facility] Z71.89 Other specified counseling OTHER SPECIFIED COUNSELING Diagnosis 12/07/2019 02:55:00 PM [facility] F32.9 Major depressive disorder, single episod e, unspecified MAJOR DEPRESSIVE DISORDER, SINGLE EPISODE, UNSPECI Diagnosis 12/07/2019 02:55:00 PM [facility] Surgeries/Procedures Procedure Description Date Indications Data Source(s) INJECTION 1 TENDON SHEATH/LIGAMENT APONEUROSIS 020 12:00:00 AM EDT MEDENT ([facility] ) MRI, lumbar spine, w/o contrast 12/14/2019 12:00:00 AM EDT GEOVANNI ([facility]) Bmi is documented within normal parameters and no follow-up plan is required 12/07/2019 12:00:00 AM EDT eCW1 ([facility]) Screening for clinical depression is doc umented as being positive and a follow- up plan is documented 12/07/2019 12:00:00 AM EDT eCW1 ([facility]) PT TOBACCO SCREEN RCVD TLK 12/07/2019 12:00:00 AM EDT eCW1 ([facility]) Results ID Date Data Source [id number] 09/15/2020 10:45:00 AM [facility] Name Value Range Interpretation Code Description Data Flora rce(s) Supporting Document(s) SARS coronavirus 2 RNA Not Detected [facility] This lab was ordered by [facility] and reported by [facility]. ID Date Data Source [id number] 08/10/2020 03:53:00 PM EST [facility] DATED ON EXAMINATION: 08/10/2020 15:19 EST PELVIC COMPLETE TRANS ABDOMEN HISTORY: Fibroid of cervix Real-time ultrasound imaging was performed utilizing B- mode/levi scale and colorDoppler imaging where applicable. There is a 4 x 3 cm mass in the lower uterine segment. An immature stripe is 8mm. The ovaries appear normal. 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 Electronically signed in PS360 by: Lara Taveras M.D. 08/10/2020 15:47 EST Name Value Range Interpretation Code Description Data [facility] rce(s) Supporting Document(s) ID Date Data Source [id number] 08/10/2020 03:47:00 PM EST [facility] Name Value Range Interpretation Code Description Data Flora rce(s) Supporting Document(s) WHITE BLOOD COUNT 14.4 K/mm3 4.0-10.0 [facility] annemarie RED BLOOD COUNT 4.41 M/mm3 4.00-5.50 [facility] HEMOGLOBIN 12.8 gm/dL 12.0-16.0 [facility] HEMATOCRIT 38.7 % 36.0-48.8 [facility] MEAN CELL VOLUME 87.8 fl 80-96 [facility] MEAN CORPUSCULAR HEMOGLOBIN 29.0 pg 27.0-31.0 [facility] MEAN CORPUSCULAR HGB CONC 33.1 g/dl 32.0-36.0 [facility] RED CELL DISTRIBUTION WIDTH 15.4 % 10.0-14.5 H [facility] PLATELET COUNT 424 K/mm3 172-450 [facility] ID Date Data Source US PELVIC COMPLETE TRANS ABDOMEN - [id number] 08/10/2020 12:00:00 AM EST eCW1 ([facility]) Name Value Range Interpretation Code Description Data Flora rce(s) Supporting Document(s) US PELVIC COMPLETE TRANS ABDOMEN - [id number] eCW1 ([facility]) ID Date Data Source CBC 08/10/2020 12:00:00 AM EST eCW1 ([facility]) Name Value Range Interpretation Code Description Data Flora rce(s) Supporting Document(s) 14.4 4.0-10.0 WHITE BLOOD COUNT eCW1 ([facility]) 4.41 4.00-5.50 RED BLOOD COUNT eCW1 ([facility]) 12.8 12.0-16.0 HEMOGLOBIN eCW1 ([facility]) 87.8 80-96 MEAN CELL VOLUME eCW1 ([facility]) 38.7 36.0-48.8 H[facility]ATOCRIT [facility]CW1 [facility]) 15.4 10.0-14.5 RED CELL DISTRIBUTION WID TH eCW1 ([facility]) 33.1 32.0-36.0 MEAN CORPUSCULAR HGB CONC eCW1 ([facility]) 424 172-450 PLATELET COUNT eCW1 ([facility]) 29.0 27.0-31.0 MEAN CORPUSCULAR HEMOGLOB IN eCW1 ([facility]) ID Date Data Source [id number] 08/08/2020 12:00:00 AM EST [facility] Name Value Range Interpretation Code Description Data Flora rce(s) Supporting Document(s) SARS coronavirus 2 Ag Negative [facility] This lab was ordered by [facility] and [facility] ID Date Data Source [id number] 01/07/2020 12:00:[address] [facility] Reji Pedersen MD Patient Name: MARQUISE LANTIGUA [id number] Date of : 1985[address] Date of Exam: 01/07/2020MARILYN Maloney [id number]#: Fax: [id number] EXAM: MRI LUMBAR SPINE WITHOUT CONTRASTPROCEDURE INFORMATION:Exam: MR Lumbar Spine Without Contrast.Exam date and time: 01/07/2020 1:13 PM Age: 34 years oldClinical indication: Pain and injury or trauma; Fall; Late effect fromprevious injury; Sprain or strain, lumbar ligaments; Low back pain; Injurydate: 2013TECHNIQUE: Imaging protocol: Multiplanar magnetic resonance images of thelumbar spine without intravenous contrast.COMPARISON: No relevant prior studies available.FINDINGS:Vertebrae: There is disc desiccation and mild disc height loss withspondylosis at L5-S1. Elsewhere, the intervertebral disc heights arepreserved. There is a small Schmorl's node of the T12 inferior endplate.Spinal cord: The conus medullaris ends normally.L1-L2: No significant disc disease. No significant spinal canal stenosis.No neural foraminal stenosis. L2-L3: No significant disc disease. Nosignificant spinal canal stenosis. No neural foraminal stenosis. L3-L4: Nosignificant disc disease. No significant spinal canal stenosis. No neuralforaminal stenosis. L4-L5: Mild facet arthropathy with trace facet jointeffusions a small right-sided extra canalicular synovial cyst. No stenoses.L5-S1: Mild disc osteophyte. High- intensity zone in posterior disc marginwithout a focal disc protrusion or extrusion. Mild facet arthropathy withtrace right facet joint effusion. The central spinal canal remains patent.Mild left lateral recess narrowing. Mild bilateral neural foraminalstenoses.Soft tissues: Unremarkable.IMPRESSION:1. Mild disc degeneration with disc height loss and spondylosis at L5-S1.2. Mild left lateral recess stenosis at L5-S1.3. Mild bilateral neural foraminal stenoses at L5-S1.Thank you for allowing us to participate in the care of your patient.Dictated and Authenticated by: Nava Krause MD 01/07/2020 3:01 PMEastern Time ([place] & [place])VradV/sandipcThank you for referring MARQUISE LANTIGUA to our office. Electronically Signed - NHUNG 01/07/20 15:24 Name Value Range Interpretation Code Description Data Flora rce(s) Supporting Document(s) ID Date Data Source [id number] 12/29/2019 10:17:00 AM EDT [facility] annemarie Specimen Comment: Source.............End ocervixSpecimen Comment: LMP / Prev Treat...[id number] Comment: No. of containers..01 ThinPrep Vial Name Value Range Interpretation Code Description Data Flora rce(s) Supporting Document(s) REFLEX PAP Comment . [facility] The HPV DNA reflex criteria were not met with this specimenresult therefore, no HPV testing was performed.Performed at: [address] [id number] Director: Laura Shell MD, Phone: [phone] DIAGNOSIS: Comment . [facility] NEGATIVE FOR INTRAEPITHELIAL LESION OR M ALIGNANCY. SPECIMEN ADEQUACY: Comment . [facility] Satisfactory for evaluation. Endocervic al and/or squamous metaplasticcells (endocervical component) are present. PERFORMED BY: Comment . [facility] Anu Souza Clinical Laboratory Assistant [facility] . . . [facility] NOTE: Comment . [facility] The Pap smear is a screening test design ed to aid in thedetection of premalignant and malignant conditions of theuterine cervix. It is not a diagnostic procedure andshould not be used as the sole means of detecting cervicalcancer. Both false-positive and false-negative reports dooccur. ID Date Data Source [id number] 12/30/2019 04:05:00 PM EDT [facility] Name Value Range Interpretation Code Description Data Flora rce(s) Supporting Document(s) Pap Lb, rfx HPV all pth [facility] p TESTS RESULT FLAG UNI TS REF RANGE LAB Clinician Provided Cytology Information Source.............Endocervix LMP / Prev Treat...[id number] No. of containers..01 ThinPrep VialDIAGNOSIS: 01 NEGATIVE FOR INTRAEPITHELIAL LESION OR MALIGNANCY.Specimen adequacy: 01 Satisfactory for evaluation. Endocervical and/or squamous metaplastic cells (endocervical component) are present.Performed by: 01 Anu Souza Clinical Laboratory Assistant (ASCP). 01Note: Note 01 The Pap smear is a screening test designed to aid in the detection of premalignant and malignant conditions of the uterine cervix. It is not a diagnostic procedure and should not be used as the sole means of detecting cervical cancer. Both false-positive and false-negative reports do occur. . 01 The HPV DNA reflex criteria were not met with this specimen result therefore, no HPV testing was performed. FLAG LEGEND: L-Low Normal,H-High Normal,LL-Alert Low,HH-Alert High <-Panic Low,>-Panic High,A-Abnormal,AA-Critical Abnormal Performed at:[address] [id number] Laura Shell MD, ID Date Data Source [id number] 12/15/2019 02:22:00 PM EDT [facility] DATE OF EXAMINATION: 12/15/2019 13:17 EDT TECHNIQUE: 3 views of the thoracic spine were obtained. HISTORY: Pain FINDINGS: Mild levoconvex scoliosis of the upper thoracic spine is noted. Milddegenerative changes are seen in the mid thoracic spine. There is no subluxationor fracture IMPRESSION: Mild levoconvex scoliosis and minimal degenerative changes. Electronically signed in PS360 by: Lara Taveras M.D. 12/15/2019 14:16 EDT Name Value Range Interpretation Code Description Data Flora rce(s) Supporting Document(s) ID Date Data Source [id number] 12/15/2019 02:21:00 PM EDT [facility] DATE OF EXAMINATION: 12/15/2019 13:17 EDT TECHNIQUE: 4 views of the lumbar spine were obtained. HISTORY: Low back pain FINDINGS: No evidence of acute fracture or subluxation. Lumbar alignment is normal withnormal lordosis. Disc spaces and vertebral body heights are maintained. Noaggressive osseous lesions or erosions. Bone mineral density is unremarkable.Sacroiliac joints appear normal. Visualized soft tissues are normal. IMPRESSION: Mild degenerative disc disease at L5-S1.. Electronically signed in PS360 by: Lara Taveras M.D. 12/15/2019 14:15 EDT Name Value Range Interpretation Code Description Data Flora rce(s) Supporting Document(s) ID Date Data Source [id number] 12/15/2019 02:35:00 PM EDT [facility] l Name Value Range Interpretation Code Description Data [facility] rce(s) Supporting Document(s) TSH 0.86 uIU/mL 0.36-3.74 [facility] ID Date Data Source [id number] 12/15/2019 02:33:00 PM T [facility] l Name Value Range Interpretation Code Description Data [facility] rce(s) Supporting Document(s) GLUCOSE 91 mg/dL 74-106 [facility] BLOOD UREA NITROGEN 12 mg/dL 7-18 [facility] ital CREATININE 0.6 mg/dL 0.6-1.0 [facility] SODIUM 138 mmol/L 136-145 [facility] POTASSIUM 4.6 mmol/L 3.5-5.1 [facility] CHLORIDE 100 mmol/L 98-107 [facility] CO2 31 mmol/L 21-32 [facility] CALCIUM 9.2 mg/dL 8.5-10.1 [facility] ANION GAP 7.0 mmol/L 5-12 [facility] GLOMERULAR FILTRATION RATE >90 mL/min [facility] GFR IS CALCULATED IN mL/min/1.73m2 KHUSHI L FUNCTION: >90MILDLY DECREASED: 60-89MILDY TO MODERATELY DECREASED: 45-59 MODERATELY TO SEVERELY DECREASED: 30-44SEVERELY DECREASED: 15-29RENAL FAILURE: <15 AST 23 U/L 15-37 [facility] ALT 29 U/L 12-78 [facility] ALKALINE PHOSPHATASE 75 U/L 46-116 [facility] TOTAL BILIRUBIN 0.1 mg/dL 0.2-1.0 L [facility] TOTAL PROTEIN 6.5 g/dl 6.4-8.2 [facility] ALBUMIN 3.8 gm/dL 3.4-5.0 [facility] ID Date Data Source [id number] 12/15/2019 02:33:00 PM EDT [facility] l Name Value Range Interpretation Code Description Data Flora rce(s) Supporting Document(s) CHOLESTEROL 229 mg/dL 0-200 H [facility] TRIGLYCERIDES 140 mg/dL 0-150 [facility] LDL CHOLESTEROL 155 mg/dL 0-100 H [facility] HDL CHOLESTEROL 46 mg/dL 40-60 [facility] CHOL/HDL RATIO 5.0 0.0-5.0 [facility] ID Date Data Source [id number] 12/15/2019 01:48:00 PM EDT [facility] l DATED ON EXAMINATION: 12/15/2019 13:02 ED T PELVIC COMPLETE TRANS ABDOMEN HISTORY: Menorrhagia Real-time ultrasound imaging was performed utilizing B-mode/levi scale and colorDoppler imaging where applicable. Uterus is retroverted measuring 8.7 x 4.6 x 5.3 cm. 2 cm leiomyoma of uterinefundus is noted. Endometrial stripe is 0.5 cm. Ovaries appear normal. There isno fluid in the cul-de-sac. IMPRESSION: 2 cm leiomyoma of uterine fundus. Retroverted uterus.. Electronically signed in PS360 by: Lara Taveras M.D. 12/15/2019 13:43 EDT Name Value Range Interpretation Code Description Data Flora rce(s) Supporting Document(s) Procedure Social History Code Duration Value Status Description Data Source(s ) Smoking 08/10/2020 12:00:00 AM EST Current Smoker completed Curre nt Smoker eCW1 ([facility]) Smoking 08/10/2020 12:00:00 AM EST Current Smoker completed Curre nt Smoker eCW1 ([facility]) Smoking 08/10/2020 12:00:00 AM EST Current Smoker completed Curre nt Smoker eCW1 ([facility]) Smoking 08/10/2020 12:00:00 AM EST Current Smoker completed Curre nt Smoker eCW1 ([facility]) Smoking 08/10/2020 12:00:00 AM EST Current Smoker completed Curre nt Smoker eCW1 ([facility]) Smoking 12/29/2019 12:00:00 AM EDT Current Smoker completed Curre nt Smoker eCW1 ([facility]) Smoking 12/29/2019 12:00:00 AM EDT Current Smoker completed Curre nt Smoker eCW1 ([facility]) Vital Signs ID Date Data Source UNK Name Value Range Interpretation Code Description Data Source(s) Oxygen saturation in Arterial blood by Pulse oximetry 99 % 99 % eCW1 ([facility]) Respiratory rate 18 /min 18 /min eCW1 ([facility]) Heart rate 76 /min 76 /min eCW1 ([facility]) Body mass index (BMI) [Ratio] 24.56 kg/m2 24.56 kg/m2 eCW1 ([facility]) Body weight 130.0 [lb_av] 130.0 [lb_av] eCW1 ([facility]) Body height 61 [in_i] 61 [in_i] eCW1 ([facility]) Body weight 135.00 [lb_av] 135.00 [lb_av] MEDEN T ([facility]) Body temperature 98.2 [degF] 98.2 [degF] MEDENT ([facility]) Oxygen saturation in Arterial blood by Pulse oximetry 98 % 98 % MEDENT ([facility]) Respiratory rate 16 /min 16 /min MEDENT ( [facility]) Heart rate 97 /min 97 /min MEDENT ([facility]) Diastolic blood pressure 85 mm[Hg] 85 mm[Hg] MEDENT ([facility]) Systolic blood pressure 126 mm[Hg] 126 mm[Hg] M EDENT ([facility]) Body mass index (BMI) [Ratio] 24.6 kg/m2 24.6 k g/m2 MEDENT ([facility] ) Body weight 130.00 [lb_av] 130.00 [lb_av] MEDEN T ([facility] ) Body height 61 [in_i] 61 [in_i] MEDENT ([facility]) 5'1" Body temperature 98.4 [degF] 98.4 [degF] MEDENT ([facility]) Oxygen saturation in Arterial blood by Pulse oximetry 99 % 99 % eCW1 ([facility]) Respiratory rate 18 /min 18 /min eCW1 ([facility]) Heart rate 79 /min 79 /min eCW1 ([facility]) Body mass index (BMI) [Ratio] 26.49 kg/m2 26.49 kg/m2 eCW1 ([facility]) Body weight 140.2 [lb_av] 140.2 [lb_av] eCW1 ([facility]) Body height 61 [in_i] 61 [in_i] eCW1 ([facility]) Body weight 143 [lb_av] 143 [lb_av] GEOVANNI ([facility]) Systolic blood pressure 105 mm[Hg] 105 mm[Hg] A THENA ([facility]) Body mass index (BMI) [Ratio] 27 kg/m2 27 kg/ m2 GEOVANNI ([facility]) Body height 61 [in_i] 61 [in_i] GEOVANNI ([facility]) Diastolic blood pressure 69 mm[Hg] 69 mm[Hg] GEOVANNI ([facility]) Body weight 143 [lb_av] 143 [lb_av] GEOVANNI ([facility]) Systolic blood pressure 105 mm[Hg] 105 mm[Hg] A THENA ([facility]) Body mass index (BMI) [Ratio] 27 kg/m2 27 kg/ m2 GEOVANNI ([facility]) Body height 61 [in_i] 61 [in_i] GEOVANNI ([facility]) Diastolic blood pressure 69 mm[Hg] 69 mm[Hg] GEOVANNI ([facility]) Deprecated Oxygen saturation in Capillary blood by Oximetry 99 % 99 % eCW1 ([facility]) Respiratory rate 18 /min 18 /min eCW1 ([facility]) Heart rate 98 /min 98 /min eCW1 ([facility]) Body temperature 98.0 [degF] 98.0 [degF] eCW1 ( [facility]) Body mass index (BMI) [Ratio] 26.94 kg/m2 26.94 kg/m2 eCW1 ([facility]) Body weight Measured 142.6 [lb_av] 142.6 [lb_av ] eCW1 ([facility]) Body height 61 [in_us] 61 [in_us] eCW1 ([facility]) Diastolic blood pressure 71 mm[Hg] 71 mm[Hg] eCW1 ([facility]) Systolic blood pressure 100 mm[Hg] 100 mm[Hg] e CW1 ([facility]) Body temperature 98.0 [degF] 98.0 [degF] eCW1 ( [facility]) Respiratory rate 16 /min 16 /min eCW1 ([facility]) Heart rate 74 /min 74 /min eCW1 ([facility]) Body mass index (BMI) [Ratio] 26.07 kg/m2 26.07 kg/m2 eCW1 ([facility]) Body height 61 [in_us] 61 [in_us] eCW1 ([facility]) Body weight Measured 138 [lb_av] 138 [lb_av] eC W1 ([facility]) Patient Treatment Plan of Care Planned Activity Planned Date Details Description Data Source (s) Levonorgest-Eth Estrad 91-Day 0.15-0.03 MG 12/29/2019 12:00:00 AM E DT eCW1 ([facility]) atorvastatin 20 MG Oral Tablet [Lipitor] 12/17/2019 12:00:00 AM EDT eCW1 ([facility]) atorvastatin 20 MG Oral Tablet [Lipitor] 12/17/2019 12:00:00 AM EDT eCW1 ([facility]) atorvastatin 20 MG Oral Tablet [Lipitor] 12/17/2019 12:00:00 AM EDT eCW1 ([facility]) 24 HR Nicotine 0.875 MG/HR Transdermal Patch [Nicoderm C-Q] 12/07/2019 12:00:00 AM EDT eCW1 ([facility]) Naproxen 500 MG Oral Tablet 12/07/2019 12:00:00 AM EDT eCW1 ([facility]) physical therapy eval and tx - 12/07/2019 12:00:00 AM EDT eCW1 ([facility]) Triamcinolone Acetonide 0.005 MG/MG Topical Ointment GEOVANNI ([facility]) tizanidine 4 MG Oral Tablet GEOVANNI ([facility]) Prednisone 20 MG Oral Tablet GEOVANNI ([facility]) Nicotine 4 MG Chewing Gum AT MIRIAN ([facility]) levocetirizine dihydrochloride 5 MG Oral Tablet GEOVANNI ([facility]) Clindamycin 300 MG Oral Capsule GEOVANNI ([facility]) cefdinir 300 MG Oral Capsule GEOVANNI ([facility]) Triamcinolone Acetonide 0.005 MG/MG Topical Ointment GEOVANNI ([facility]) tizanidine 4 MG Oral Tablet GEOVANNI ([facility]) Prednisone 20 MG Oral Tablet GEOVANNI ([facility]) Nicotine 4 MG Chewing Gum AT MIRIAN ([facility]) levocetirizine dihydrochloride 5 MG Oral Tablet GEOVANNI ([facility]) Clindamycin 300 MG Oral Capsule GEOVANNI ([facility]) cefdinir 300 MG Oral Capsule GEOVANNI ([facility]) Acetaminophen 325 MG / butalbital 50 MG Oral Tablet GEOVANNI ([facility])
[2020-09-20] MEDS ORDERED: LR 1,000 ML IV ONE (07:00)
[2020-09-20] MEDS ORDERED: LIDOCAINE 2% 100MG/5ML SDV (FOR ANES.) As Ordered ONE (07:20)
[2020-09-20] MEDS ORDERED: fentaNYL 100 MCG/2 ML INJECTION (J3010) As Ordered ONE ×2 (07:20→09:14)
[2020-09-20] MEDS ORDERED: propofoL 200 MG/20 ML VIAL As Ordered ONE (07:20)
[2020-09-20] MEDS ORDERED: MIDAZOLAM INJ 2MG/2ML VIAL (J2250 PER 1MG) As Ordered ONE (07:20)
[2020-09-20] MEDS ORDERED: ONDANSETRON 4MG/2ML VIAL As Ordered ONE (07:21)
[2020-09-20] MEDS ORDERED: dexameTHASONE 4 MG/ML 1ML VIAL (J1100 PER 1MG) As Ordered ONE (07:21)
[2020-09-20] MEDS ORDERED: ROCURONIUM BROMIDE 50 MG/5 ML VIAL As Ordered ONE ×2 (07:21→09:17)
[2020-09-20] MEDS ORDERED: ceFAZolin 2 GM/D5W 50 ML IV BAG (J0690 PER 500MG) As Ordered ONE (07:28)
[2020-09-20 07:33] LABS: HEMATOCRIT 24.7 % (36.0-47.0); HEMOGLOBIN 7.8 g/dl (12.0-15.5); MEAN CORPUSCULAR HEMOGLOBIN 27.8 pg (27.0-33.0); MEAN CORPUSCULAR HGB CONC 31.6 g/dl (32.0-36.5); MEAN CORPUSCULAR VOLUME 87.9 fl (80.0-96.0); PLATELET COUNT, AUTOMATED 407 10^3/uL (150-450); RED BLOOD COUNT 2.81 10^6/uL (4.00-5.40); WHITE BLOOD COUNT 13.5 10^3/uL (4.0-10.0)
[2020-09-20 07:49] LABS: BLOOD UREA NITROGEN 11 MG/DL (7-18); CARBON DIOXIDE LEVEL 29 MEQ/L (21-32); CHLORIDE LEVEL 107 MEQ/L (98-107); CREATININE FOR GFR 0.61 MG/DL (0.55-1.30); GLOMERULAR FILTRATION RATE > 60.0 (>60); GLUCOSE, FASTING 94 MG/DL (70-100); SODIUM LEVEL 141 MEQ/L (136-145)
[2020-09-20] MEDS ORDERED: CLINDAMYCIN 900 MG/50 ML PREMIX BAG As Ordered ONE (07:59)
[2020-09-20] MEDS ORDERED: FLUORESCEIN OPHTH 1 MG STRIP As Ordered ONE (08:07)
[2020-09-20] MEDS ORDERED: BUPIVACAINE/EPIN 0.25% 30 ML VIAL As Ordered ONE (08:07)
[2020-09-20] MEDS ORDERED: FLUORESCEIN 10% (100MG/ML) 5 ML VIAL As Ordered ONE (08:08)
[2020-09-20] MEDS ORDERED: CLINDAMYCIN 900 MG in IV 1 EA IV ONE (08:15)
[2020-09-20] MEDS ORDERED: ACETAMINOPHEN 1000MG 100ML IV BTL (OFIRMEV) (J0131 PER 10MG) As Ordered ONE (08:39)
[2020-09-20] MEDS ORDERED: SUGAMMADEX SODIUM 500 MG/5 ML VIAL (BRIDION) As Ordered ONE (08:39)
[2020-09-20] MEDS ORDERED: KETOROLAC 60MG 2ML VIAL As Ordered ONE (08:39)
[2020-09-20] MEDS ORDERED: ePHEDrine SULFATE 25 MG/5 ML(5MG/ML) SYRINGE As Ordered ONE (09:09)
[2020-09-20] MEDS ORDERED: PHENYLephrine 500MCG 5ML (100MCG/ML) SYRINGE As Ordered ONE (09:09)
[2020-09-20] MEDS ORDERED: ALBUTEROL 6.7GM INHALER **FOR ANES. CART/OMNICELL ONLY As Ordered ONE (10:01)
[2020-09-20] MEDS ORDERED: oxyCODONE 5MG TAB As Ordered ONE (10:21)
[2020-09-20] MEDS ORDERED: fentaNYL 100 MCG/2 ML INJECTION (J3010) IV PRN (10:30)
[2020-09-20] MEDS ORDERED: ONDANSETRON 4MG/2ML VIAL IV PRN (10:30)
[2020-09-20] MEDS ORDERED: oxyCODONE 5MG TAB PO PRN (10:30)
[2020-09-20] MEDS ORDERED: METOCLOPRAMIDE INJ 10MG/2ML VIAL (J2765 PER 1) IV PRN (10:30)
[2020-09-20] MEDS ORDERED: LR 1,000 ML IV SCH ×2 (10:30)
[2020-09-20] MEDS ORDERED: PERCOCET 5MG/325MG TAB PO PRN (10:30)
--- NOTE | 2020-09-20 11:00 | RO ---
OPERATIVE NOTE DATE OF OPERATION: 09/20/2020 INDICATION: Cheryl is a 35-year-old female with an excessive history of abnormal uterine bleeding, fibroid uterus, and pelvic pain. After extensive consult in the office, the decision was made to proceed with a robotic-assisted total hysterectomy, removal of both tubes, and possible cystoscopy. PREOPERATIVE DIAGNOSES: 1. Excessive menstruation. 2. Fibroid uterus. 3. Pelvic pain. POSTOPERATIVE DIAGNOSES: 1. Excessive menstruation. 2. Fibroid uterus. 3. Pelvic pain. 4. Aborting myoma. PROCEDURES: 1. Robotic-assisted total hysterectomy. 2. Removal of both tubes. 3. Cystoscopy. SURGEON: Hiro Douglas DO. SPINNING LATHE OPERATOR HYDRAULIC: JAD Carter. ANESTHESIA: General. COMPLICATIONS: None. ESTIMATED BLOOD LOSS: Less than 10 mL. FINDINGS: An enlarged uterus with an aborting myoma through the cervical os. On cystoscopy bilateral ureteral jets were noted. No evidence of any bladder injury noted. SPECIMEN SENT TO THE LAB: The uterus, fibroids, and bilateral tubes. DESCRIPTION OF PROCEDURE: After obtaining informed consent, patient was taken to the operating room where general anesthetic was found to be adequate. She was then draped and prepped in the usual sterile fashion in the dorsal lithotomy position. At this point, A Cano catheter was placed in the bladder for drainage. We then placed a HUMI 2 uterine manipulator. Attention was then turned to the abdomen where an 8 mm infraumbilical incision was made. Using the Veress needle, the abdomen was insufflated with CO2 gas to approximately 3.5 liters. We then placed two left lateral 8 mm ports for robotic arm 1 and robotic arm 2 and the assist port. On the right side, an 8 mm lateral port was placed under direct visualization for robotic arm 1. The patient was then placed in steep Trendelenburg. The robot was brought to the patient's right side. The camera port was docked in the appropriate fashion. Proper targeting was then performed after passing the target process. The remaining arms were then docked. We then placed a vessel sealer on arm 1 and bipolar grasper on arm 2. I unscrubbed and went to the surgeon's console to begin the surgery. At this point, the bilateral fallopian tubes were identified. The pelvis was inspected thoroughly. The fallopian tube as held in tension. Using the vessel sealer, the entire fallopian tube was taken all the way down to the cornual end of the uterus. Then the uteroovarian ligament was then cauterized and cut using the vessel sealer. This was taken all the way down to the uterine arteries. After securing the uterine artery, the anterior leaflet of the broad ligament was dissected to create a bladder flap. The bladder flap was pushed out of the operative site. The opposite side was done in a similar fashion. The anterior leaflet of the broad ligament on that side was also pushed to displace the bladder. After securing the uterine artery and creating a bladder flap, we then removed the vessel sealer, and an Endo Shear was then placed. Anterior and posterior colpotomy was performed. The uterus and bilateral tubes were removed through the vagina. At this point, the pelvis was copiously irrigated with normal saline and suctioned out. I then closed the vaginal cuff using a 2-0 V-Loc suture in a running fashion. One milliliter of fluorescein was given by the anesthesiologist to assist in cystoscopy. I then rescrubbed and went to the patient's side and retrograde filled the bladder with 230 mL of normal saline. Cystoscopy was performed. Bilateral ureteral jets noted. No evidence of any bladder injury noted. At this point, the Cano catheter was placed back in the bladder for drainage, and the robotic ports were then removed, and the sites were closed using 3-0 Vicryl in a subcuticular fashion. Marcaine 0.25% was placed for postoperative pain. Dermabond placed. Patient tolerated the procedure well. She was then transferred to recovery room in stable condition. cc: [facility]
[2020-09-20] MEDS ORDERED: IBUP1TAB7 PO (11:49)
[2020-09-20] MEDS ORDERED: PERC5TAB12 PO (11:49)
[2020-09-20] MEDS ORDERED: SIMETHICONE 80MG CHEW TAB PO SCH (12:00)
[2020-09-20] MEDS ORDERED: GLYCOPYRROLATE INJ 0.2 MG/ML 2 ML VIAL As Ordered ONE (12:51)
[2020-09-20 13:04] VITALS: BP 108/60
[2020-09-20] MEDS ORDERED: IBUPROFEN 800 MG TAB PO SCH (15:00)
== END 2020-09-20 13:07 | disposition home or self-care (01) ==
LOC: M SDC 06:54
PROVIDERS: ATTEND Obstetrics & Gynecology
DX: N92.1 Excessive and frequent menstruation with irregular cycle (principal); D25.0 Submucous leiomyoma of uterus; R10.2 Pelvic and perineal pain; N94.5 Secondary dysmenorrhea; E78.5 Hyperlipidemia, unspecified; F17.210 Nicotine dependence, cigarettes, uncomplicated; F32.9 Major depressive disorder, single episode, unspecified; G43.909 Migraine, unspecified, not intractable, without status migrainosus; Z88.0 Allergy status to penicillin; Z79.899 Other long term (current) drug therapy
CPT/HCPCS: 36415; 58571; 80048; 81025; 85027; 86850; 86900; 86901; 88307; J0131; J1100; J1885; J2250; J2370; J2405; J3010; S2900

== ENCOUNTER → 2020-10-25 | Outpatient (REF) | payer OTHER, MEDICAID ==
[~2020-10-25] MED LIST changes: +IBUP1TAB7 PO; -LIDOCAINE 1% MDV 20ML VIAL SQ PRN; +PERC5TAB12 PO
== END ==
LOC: EEVIPCON 16:21 → M LAB REF 16:21
PROVIDERS: ATTEND Advanced Practice Midwife
DX: T81.30XA Disruption of wound, unspecified, initial encounter (principal); Y83.9 Surgical procedure, unspecified as the cause of abnormal reaction of the patient, or of later complication, without mention of misadventure at the time of the procedure

== ENCOUNTER 2021-08-06 15:45 | Emergency (ER) | payer OTHER, MEDICAID ==
[~2021-08-06] VITALS: Ht 154.9 cm; Wt 75.7 kg
[2021-08-06 15:46] VITALS: BP 122/70
== END 2021-08-06 17:40 | disposition left against medical advice (07) ==
LOC: M ED 15:45
DX: Z53.21 Procedure and treatment not carried out due to patient leaving prior to being seen by health care provider (principal)

== ENCOUNTER → 2024-01-12 | Outpatient (CLI) | payer OTHER | LOC: M RAD 08:11 | PROVIDERS: ATTEND Nurse Practitioner Family | DX: R10.11 Right upper quadrant pain (principal); R93.2 Abnormal findings on diagnostic imaging of liver and biliary tract | CPT/HCPCS: 78227; A9537 ==